=== PATIENT | female | born 1965 | race African-American/Black ===

== ENCOUNTER 2016-06-30 18:39 | Emergency (ER) | payer OTHER ==
[~2016-06-30] VITALS: Ht 170.2 cm; Wt 75.0 kg
[~2016-06-30 18:39] MED LIST: ALBU1AER INH; ATOR40TA PO; GLUCLIQ PO; LEVA750T PO; METF500 PO; MOME17I; NICO21DI24 TD; OMEP20TA PO; TIOT1AER2 INH
[2016-06-30 18:42] VITALS: BP 116/69; PULSE 110; RESP 20; TEMP 101.8; O2SAT 91
--- NOTE | 2016-06-30 18:56 | PD ---
HPI Chief Complaint: Cold / Flu Symptoms Time Seen by Provider: 18:56 Travel History International Travel<30 days: No Contact w/Intl Traveler<30days: No Traveled to known affect area: No History of Present Illness HPI 51-year-old female patient of diabetes, COPD, hypercholesterol, anxiety, presents to emergency department for evaluation. Patient states that she has been having some urinary trouble and went to her physician Tuesday. She was started on Bactrim. She felt it yesterday and started taking it. She states she developed fever yesterday but has also had cough and chest congestion. She has been nauseous without vomiting. She states last year around this time she had pneumonia. She had stopped tobacco cigarette smoking but began doing it again and believes this may be worsening her symptoms. There is a chest pain but states it feels tight. Has a sore throat associated with cough. Cough is productive of a thick sputum. No other symptoms to report. PFSH Past Medical History Arthritis: Yes Asthma: Yes Heart Rhythm Problems: No Cancer: No Cardiac Catheterization: No Cardiovascular Problems: Yes High Cholesterol: No COPD: Yes Diabetes: Yes Diminished Hearing: No Endocrine: Yes Genitourinary: No Hypertension: Yes Immune Disorder: No Musculoskeletal: Yes Neurologic: No Psychiatric: No Reproductive: No Respiratory: Yes (chronic lung disease) Immunizations Current: Yes Menopausal: Yes Past Surgical History Section: Yes (1978) Coronary Artery Bypass Graft: No Gynecologic Surgery: Yes (c section 1978) Pacemaker: No Social History Alcohol Use: No Tobacco Use: Yes (06/09 PPD) Substance Use: No Allergies-Medications (Allergen,Severity, Reaction): Coded Allergies: No Known Allergies (Verified , 06/30/16) Reported Meds & Prescriptions Reported Meds & Active Scripts Active Nicotine Transdermal Syst (Nicotine) 21 Mg/24 H Dis 21 Mg TD DAILY 42 Days Glucerna Shake (Nutritional Supplements) Vanilla Liq 1 Can PO BID 30 Days Levaquin 750 Mg Tab (Levofloxacin) 750 Mg Tab 750 Mg PO DAILY 10 Days Reported Atorvastatin 40 mg (Atorvastatin Calcium) 40 Mg Tab 40 Mg PO HS Spiriva Respimat (Tiotropium [place] Monohydrate) 1.25 Mcg/Act Aer 1 Puff INH DAILY Glucophage 500 mg (Metformin HCl) 500 Mg Tab 500 Mg PO BIDPC Nasonex (Mometasone Furoate) 50 Mcg/Ac Spr 2 [place] NA DAILY SPRAY IN EACH NOSTRIL Omeprazole 20 mg (Omeprazole) 20 Mg Tab 20 Mg PO BID Proair Hfa (Albuterol Sulfate) 8.5 Gm Aero 2 Puff INH Q6HPRN * SHAKE WELL BEFORE USE * Review of Systems Except as stated in HPI: all other systems reviewed are Neg Physical Exam Narrative GENERAL: Well-nourished female patient, sitting in the bed, in no acute distress SKIN. Warm, diaphoretic HEAD: Atraumatic. Normocephalic. EYES: Pupils equal and round. No scleral icterus. No injection or drainage. ENT: No nasal bleeding or discharge. Mucous membranes pink and moist. NECK: Trachea midline. No JVD. CARDIOVASCULAR: Tachycardic rate and rhythm. No murmur appreciated. RESPIRATORY: No accessory muscle use. Coarse throughout, scattered rhonchi. Diminished bases. Breath sounds equal bilaterally. GASTROINTESTINAL: Abdomen soft, non-tender, nondistended. Hepatic and splenic margins not palpable. MUSCULOSKELETAL: No obvious deformities. No clubbing. No cyanosis. No edema. NEUROLOGICAL: Awake and alert. No obvious cranial nerve deficits. Motor grossly within normal limits. Normal speech. PSYCHIATRIC: Appropriate mood and affect; insight and judgment normal. Data Data Last Documented VS Vital Signs Date Time Temp Pulse Resp B/P Pulse Ox O2 Delivery O2 Flow Rate FiO2 06/30/16 19:21 99 18 99 Room Air 06/30/16 18:42 101.8 116/69 Orders Acetaminophen (Tylenol) (06/30/16 19:00) Electrocardiogram (06/30/16 18:50) Complete Blood Count With Diff (06/30/16 18:50) Comprehensive Metabolic Panel (06/30/16 18:50) Prothrombin Time / Inr (Pt) (06/30/16 18:50) Act Partial Throm Time (Ptt) (06/30/16 18:50) Lactic Acid Sepsis Protocol (06/30/16 18:50) Ckmb (Isoenzyme) Profile (06/30/16 18:50) Troponin I (06/30/16 18:50) Urinalysis - C+S If Indicated (06/30/16 18:50) Blood Culture (06/30/16 18:50) Chest, Single Ap (06/30/16 18:50) Influenzae A/B Antigen (06/30/16 18:50) Group A Rapid Strep Screen (06/30/16 18:55) MDM Medical Decision Making Medical Screen Exam Complete: Yes Emergency Medical Condition: Yes Medical Record Reviewed: Yes Differential Diagnosis Influenza versus pneumonia versus COPD exacerbation versus UTI versus sepsis Narrative Course 51-year-old female presents to emergency department for evaluation. Patient is febrile and tachycardic here in the triage area. She is given Tylenol for her fever. Workup is initiated. Once a medical bed becomes available, patient will be transferred and care assumed by that provider. Condition: Stable Elisa Hernandez Jun 30, 2016 18:56
[2016-06-30] MEDS ORDERED: ACETAMINOPHEN 325 MG TAB PO ONE (19:00)
--- NOTE | 2016-06-30 19:32 | RADRPT ---
EXAM DATE/TIME: 06/30/2016 19:16 [facility] COMPARISON: CHEST SINGLE AP, November 22, 2014, 19:55. CT THORAX W CONTRAST, February 29, 2016, 10:18. CHEST SINGL E AP, February 26, 2016, 23:10. INDICATIONS : Fever, cough, flu-like symptoms. MEDICAL HISTORY : Cardiovascular disease. Hypertension. Chronic obstructive pulmonary disease. Known scarring and calci fication. Diabetes. SURGICAL HISTORY : None. ENCOUNTER: Initial ACUITY: 1 week PAIN SCORE: 4/10 LOCATION: chest FINDINGS: A single view of the chest demonstrates the lungs to be symmetrically aerated without evidence of mas s, infiltrate or effusion. Chronic scarring and calcification are again noted in the right lung. The re is underlying bullous change greatest in the left lung. There is no definite new focal consolidati on. The cardiomediastinal contours are unremarkable. Osseous structures are intact. CONCLUSION: 1. Underlying emphysema, chronic scarring and bullous change. 2. No definite evidence of pneumonia. Mike Lara MD on June 30, 2016 at 19:29 Board Certified Radiologist. This report was verified electronically.
[2016-06-30 19:52] LABS: APTT (PATIENT) 31.5 SEC (24.3-30.1); INTERNATIONAL NORMALIZED RATIO 0.9 RATIO; PROTHROMBIN TIME - PATIENT 10.2 SEC (9.8-11.6)
[2016-06-30] MEDS ORDERED: ALBUAER3 INH (19:58)
[2016-06-30] MEDS ORDERED: METF500T PO (19:59)
[2016-06-30] MEDS ORDERED: ATOR40TA16 PO (19:59)
[2016-06-30] MEDS ORDERED: MOME17I EACH NARE (20:00)
[2016-06-30] MEDS ORDERED: GLUCLIQ (20:01)
[2016-06-30] MEDS ORDERED: OMEP20TA PO (20:01)
[2016-06-30 20:07] LABS: ANION GAP 5 MEQ/L (5-15); AST (GOT) 11 U/L (15-37); BICARBONATE 29.1 MEQ/L (21.0-32.0); BLOOD UREA NITROGEN 14 MG/DL (7-18); CHLORIDE 102 MEQ/L (98-107); GLOMERULAR FILTRATION RATE 54 ML/MIN (>89); POTASSIUM 3.8 MEQ/L (3.5-5.1); SODIUM (NA) 136 MEQ/L (136-145)
--- NOTE | 2016-06-30 20:09 | PD ---
Data Data Last Documented VS Vital Signs Date Time Temp Pulse Resp B/P Pulse Ox O2 Delivery O2 Flow Rate FiO2 06/30/16 20:30 99.6 92 18 117/78 97 Room Air Orders Acetaminophen (Tylenol) (06/30/16 19:00) Electrocardiogram (06/30/16 18:50) Complete Blood Count With Diff (06/30/16 18:50) Comprehensive Metabolic Panel (06/30/16 18:50) Prothrombin Time / Inr (Pt) (06/30/16 18:50) Act Partial Throm Time (Ptt) (06/30/16 18:50) Lactic Acid Sepsis Protocol (06/30/16 18:50) Ckmb (Isoenzyme) Profile (06/30/16 18:50) Troponin I (06/30/16 18:50) Urinalysis - C+S If Indicated (06/30/16 18:50) Blood Culture (06/30/16 18:50) Chest, Single Ap (06/30/16 18:50) Influenzae A/B Antigen (06/30/16 18:50) Group A Rapid Strep Screen (06/30/16 18:55) Strep Culture (Group A) (06/30/16 19:08) Labs Laboratory Tests Test 06/30/16 06/30/16 06/30/16 19:05 20:00 20:10 Prothrombin Time 10.2 SEC Prothromb Time International 0.9 RATIO Ratio Activated Partial 31.5 SEC Thromboplast Time Sodium Level 136 MEQ/L Potassium Level 3.8 MEQ/L Chloride Level 102 MEQ/L Carbon Dioxide Level 29.1 MEQ/L Anion Gap 5 MEQ/L Blood Urea Nitrogen 14 MG/DL Creatinine 1.26 MG/DL Estimat Glomerular Filtration 54 ML/MIN Rate Random Glucose 111 MG/DL Lactic Acid Level 1.7 mmol/L Calcium Level 8.1 MG/DL Total Bilirubin 0.4 MG/DL Aspartate Amino Transf 11 U/L (AST/SGOT) Alanine Aminotransferase 19 U/L (ALT/SGPT) Alkaline Phosphatase 77 U/L Total Creatine Kinase 69 U/L Troponin I LESS THAN 0.02 NG/ML Total Protein 8.1 GM/DL Albumin 3.4 GM/DL Urine Color YELLOW Urine Turbidity HAZY Urine pH 6.0 Urine Specific [place] 1.032 Urine Protein 30 mg/dL Urine Glucose (UA) NEG mg/dL Urine Ketones NEG mg/dL Urine Occult Blood NEG Urine Nitrite NEG Urine Bilirubin NEG Urine Urobilinogen 2.0 MG/DL Urine Leukocyte Esterase LARGE Urine RBC 4 /hpf Urine WBC 154 /hpf Urine Squamous Epithelial 4 /hpf Cells Urine Mucus FEW /lpf Microscopic Urinalysis Comment CATH-CULT NOT IND White Blood Count 9.4 TH/MM3 Red Blood Count 4.39 MIL/MM3 Hemoglobin 13.4 GM/DL Hematocrit 37.4 % Mean Corpuscular Volume 85.2 FL Mean Corpuscular Hemoglobin 30.5 PG Mean Corpuscular Hemoglobin 35.8 % Concent Red Cell Distribution Width 13.1 % Platelet Count 233 TH/MM3 Mean Platelet Volume 9.5 FL Neutrophils (%) (Auto) 79.4 % Lymphocytes (%) (Auto) 11.3 % Monocytes (%) (Auto) 7.7 % Eosinophils (%) (Auto) 1.0 % Basophils (%) (Auto) 0.6 % Neutrophils # (Auto) 7.5 TH/MM3 Lymphocytes # (Auto) 1.1 TH/MM3 Monocytes # (Auto) 0.7 TH/MM3 Eosinophils # (Auto) 0.1 TH/MM3 Basophils # (Auto) 0.1 TH/MM3 CBC Comment DIFF FINAL Differential Comment MDM Supervised Visit with SELIN: Yes Narrative Course Assumed care of patient from nurse practitioner. 51-year-old woman, diabetes, COPD, hyperlipidemia, anxiety who presents with urinary trouble for 3 days, with cough congestion and fever starting yesterday. Looks well. Vital signs show fever, mild tachycardia. Studies show: My review of EKG shows normal sinus rhythm at a rate of 83, some leftward axis, normal intervals, no acute ischemia. LABS: CBC is unremarkable CMP with mildly elevated creatinine Troponin negative Lactate 1.7 Coags unremarkable Strep negative Flu negative FINAL: 50 year-old woman with likely rectal and IV antibiotics, changed to Keflex. Outpatient follow-up. Diagnosis Primary Impression: Acute pyelonephritis Additional Instruction: Take Keflex as prescribed. Follow-up with your primary doctor tomorrow. Return to the emergency department for any worsening pain, vomiting, fevers, or any other new or worsening symptoms. Med/Other Pt SpecificInfo: Prescription(s) given Scripts Cephalexin (Keflex)500 Mg Mgx343 Mg PO Q8H 10 Days Ref 0 Prov:Brandon Forde MD 06/30/16 Disposition: 01 DISCHARGE HOME Condition: Stable Brandon Forde MD Jun 30, 2016 20:09
[2016-06-30 20:12] LABS: ALKALINE PHOSPHATASE 77 U/L (45-117); ALT (GPT) 19 U/L (10-53); TOTAL BILIRUBIN ADULT 0.4 MG/DL (0.2-1.0)
[2016-06-30 20:14] LABS: CREATINE KINASE 69 U/L (26-192)
[2016-06-30 20:29] LABS: BLOOD, URINE NEG (NEG); GLUCOSE,URINE NEG (NEG); KETONE, URINE NEG (NEG); MUCUS URINE FEW /lpf (OCC); NITRITE,URINE NEG (NEG); SQUAMOUS EPITHELIAL CELL URINE 4 /hpf (0-5); URINE COLOR YELLOW (YELLW/STRAW)
[2016-06-30 20:30] VITALS: BP 117/78; PULSE 92; RESP 18; TEMP 99.6; O2SAT 97
[2016-06-30 20:30] LABS: COMMENT (UR) CATH-CULT NOT IND; CULTURE IF INDICATED CATH CULTURE NOT IND
[2016-06-30 20:35] LABS: AUTOMATED NEUTROPHIL # 7.5 TH/MM3 (1.8-7.7); BASOPHIL # 0.1 TH/MM3 (0-0.2); BASOPHIL % 0.6 % (0.0-2.0); EOSINOPHIL # 0.1 TH/MM3 (0-0.4); HEMATOCRIT 37.4 % (35.0-46.0); HEMO FLAGS DIFF FINAL; LYMPH % 11.3 % (9.0-44.0); LYMPHOCYTE # 1.1 TH/MM3 (1.0-4.8); MEAN CELL VOLUME 85.2 FL (80.0-100.0); MEAN CORPUSCULAR HEMOGLOBIN 30.5 PG (27.0-34.0); MEAN CORPUSCULAR HGB CONC 35.8 % (32.0-36.0); MONO % 7.7 % (0.0-8.0); NEUT % 79.4 % (16.0-70.0); PLATELET COUNT 233 TH/MM3 (150-450); RED BLOOD COUNT 4.39 MIL/MM3 (4.00-5.30); RED CELL DISTRIBUTION WIDTH 13.1 % (11.6-17.2); WHITE BLOOD COUNT 9.4 TH/MM3 (4.0-11.0)
[2016-06-30] MEDS ORDERED: CEPH-460 PO (20:44)
[2016-06-30] MEDS ORDERED: cefTRIAXone INJ 1,000 MG in SODIUM CHLORIDE 0.9% INJ 100 ML IV ONE (20:45)
--- NOTE | 2016-07-01 20:09 | EKG ---
Date Performed: 06/30/2016 Time Performed: 19:58:47 PTAGE: 51 years EKG: Sinus rhythm MARKED LEFT AXIS DEVIATION When compared to previous tracing, sinus rate has decreased. ABNORMAL ECG PREVIOUS TRACING : 02/26/2016 22.30 DOCTOR: Ashish Jenkins Interpretating Date/Time 07/01/2016 20:08:12
== END 2016-06-30 22:06 | disposition home or self-care (01) ==
LOC: NEPE 18:39
DX: N10 Acute pyelonephritis (principal); R50.9 Fever, unspecified; R94.31 Abnormal electrocardiogram [ECG] [EKG]; E11.9 Type 2 diabetes mellitus without complications; J44.9 Chronic obstructive pulmonary disease, unspecified; R11.0 Nausea; I10 Essential (primary) hypertension; F17.210 Nicotine dependence, cigarettes, uncomplicated
CPT/HCPCS: 71010; 80053; 81001; 82550; 83605; 84484; 85025; 85610; 85730; 87040; 87081; 87804; 87880; 93005; 96365; 99284; J0696

== ENCOUNTER 2017-07-07 18:18 | Emergency (ER) | payer OTHER, MEDICAID ==
[~2017-07-07] VITALS: Ht 170.2 cm; Wt 69.5 kg
[~2017-07-07 18:18] MED LIST changes: -ALBU1AER INH; +ALBUAER3 INH; -ATOR40TA PO; +ATOR40TA16 PO; +CEPH-460 PO; +GLUCLIQ; -GLUCLIQ PO; -LEVA750T PO; -METF500 PO; +METF500T PO; -MOME17I; +MOME17I EACH NARE; -NICO21DI24 TD; -OMEP20TA PO; +OMEP20TA93 PO; -TIOT1AER2 INH
[2017-07-07 18:21] VITALS: BP 133/95; PULSE 91; RESP 18; TEMP 98.8; O2SAT 97
[2017-07-07] MEDS ORDERED: SODIUM CHLOR 0.9% 1000 ML INJ 1,000 ML IV ONE (19:15)
[2017-07-07] MEDS ORDERED: SODIUM CHLORIDE 0.9% FLUSH 10 ML FLUSH IVF PRN (19:15)
--- NOTE | 2017-07-07 19:22 | PD ---
HPI Chief Complaint: Respiratory Symptoms Time Seen by Provider: 19:04 Travel History International Travel<30 days: No Contact w/Intl Traveler<30days: No Traveled to known affect area: No History of Present Illness HPI 52-year-old female with a history of diabetes, COPD, anxiety presents to the emergency department complaining of cough, congestion, epistaxis, occasional dizziness for about 1 month. States that she is here today because she feels more sick than usual. She is also concerned because of the large clots that she has coming from her nose. In addition, she states that she has been "coughing blood" for approximately 1 month since the bloody nose started. Patient has not discussed the symptoms with her primary care physician whom she saw 1 month ago. She describes her occasional dizziness that lasts briefly and goes away. Says that she has been using her inhalers at home but does not have nebulizers. PFSH Past Medical History Arthritis: Yes Asthma: Yes Heart Rhythm Problems: No Cancer: No Cardiac Catheterization: No Cardiovascular Problems: Yes High Cholesterol: No COPD: Yes Diabetes: Yes Patient Takes Glucophage: Yes Diminished Hearing: No Endocrine: Yes Genitourinary: No Hypertension: Yes Immune Disorder: No Musculoskeletal: Yes Neurologic: No Psychiatric: No Reproductive: No Respiratory: Yes Immunizations Current: Yes Pneumonia: Yes ?: Not Menopausal: Yes Past Surgical History Section: Yes (1978) Coronary Artery Bypass Graft: No Gynecologic Surgery: Yes (c section 1978) Pacemaker: No Social History Alcohol Use: Yes (2 beers/day) Tobacco Use: Yes (06/09 PPD) Substance Use: No Allergies-Medications (Allergen,Severity, Reaction): Coded Allergies: No Known Allergies (Verified Adverse Reaction, Unknown, 07/07/17) Reported Meds & Prescriptions Reported Meds & Active Scripts Active Azithromycin 250 Mg Tab 250 Mg PO DIRECTED Take 2 tabs (500 mg) on day 1 then 1 tab daily x 4 days. Reported Claritin (Loratadine) 10 Mg Cap 10 Mg PO DAILY Citalopram (Citalopram Hydrobromide) 20 Mg Tab 20 Mg PO DAILY Omeprazole 20 Mg Tab 20 Mg PO DAILY Metformin (Metformin HCl) 500 Mg Tab 500 Mg PO BIDPC With meals Atorvastatin (Atorvastatin Calcium) 40 Mg Tab 40 Mg PO HS Proair Hfa 8.5 GM Inh (Albuterol Sulfate) 90 Mcg/Act Aer 2 Puff INH Q4-6H PRN 108 mcg/actuation Review of Systems Except as stated in HPI: all other systems reviewed are Neg Physical Exam Narrative GENERAL: Well-developed well-nourished anxious SKIN: Focused skin assessment warm/dry. HEAD: Atraumatic. Normocephalic. EYES: Pupils equal and round. No scleral icterus. No injection or drainage. ENT: No nasal bleeding or discharge. Mucous membranes pink and moist. Nose clear and bloody rhinorrhea. NECK: Trachea midline. No JVD. CARDIOVASCULAR: Regular rate and rhythm. No murmur appreciated. RESPIRATORY: No accessory muscle use. Clear to auscultation. Breath sounds equal bilaterally. GASTROINTESTINAL: Abdomen soft, non-tender, nondistended. Hepatic and splenic margins not palpable. MUSCULOSKELETAL: No obvious deformities. No clubbing. No cyanosis. No edema. NEUROLOGICAL: Awake and alert. No obvious cranial nerve deficits. Motor grossly within normal limits. Normal speech. PSYCHIATRIC: Appropriate mood and affect; insight and judgment normal. Data Data Last Documented VS Vital Signs Date Time Temp Pulse Resp B/P (MAP) Pulse Ox O2 Delivery O2 Flow Rate FiO2 07/07/17 22:25 07/07/17 19:36 20 97 Room Air 07/07/17 19:33 21 07/07/17 18:21 98.8 91 Orders Orders Complete Blood Count With Diff (07/07/17 19:14) Comprehensive Metabolic Panel (07/07/17 19:14) Act Partial Throm Time (Ptt) (07/07/17 19:14) Prothrombin Time / Inr (Pt) (07/07/17 19:14) Magnesium (Mg) (07/07/17 19:14) Troponin I (07/07/17 19:14) Urinalysis - C+S If Indicated (07/07/17 19:14) Influenzae A/B Antigen (07/07/17 19:14) Electrocardiogram (07/07/17 19:14) Ecg Monitoring (07/07/17 19:14) Oximetry (07/07/17 19:14) Chest, Single Ap (07/07/17 19:14) Sodium Chloride 0.9% Flush (Ns Flush) (07/07/17 19:15) Albuterol-Ipratropium Neb (Duoneb Neb) (07/07/17 19:15) Sodium Chlor 0.9% 1000 Ml Inj (Ns 1000 M (07/07/17 19:15) D-Dimer (07/07/17 19:19) Phenylephrine 0.5% Nciko Spr (Neosynephrin (07/07/17 19:30) Levofloxacin 750 Mg Premix Inj (Levaquin (07/07/17 21:00) Ed Discharge Order (07/07/17 21:35) Labs Laboratory Tests Test 07/07/17 19:20 07/07/17 20:20 White Blood Count 6.0 TH/MM3 Red Blood Count 5.06 MIL/MM3 Hemoglobin 15.6 GM/DL Hematocrit 44.0 % Mean Corpuscular Volume 87.0 FL Mean Corpuscular Hemoglobin 30.8 PG Mean Corpuscular Hemoglobin Concent 35.4 % Red Cell Distribution Width 14.2 % Platelet Count 292 TH/MM3 Mean Platelet Volume 9.2 FL Neutrophils (%) (Auto) 44.1 % Lymphocytes (%) (Auto) 42.9 % Monocytes (%) (Auto) 10.2 % Eosinophils (%) (Auto) 1.6 % Basophils (%) (Auto) 1.2 % Neutrophils # (Auto) 2.6 TH/MM3 Lymphocytes # (Auto) 2.6 TH/MM3 Monocytes # (Auto) 0.6 TH/MM3 Eosinophils # (Auto) 0.1 TH/MM3 Basophils # (Auto) 0.1 TH/MM3 CBC Comment DIFF FINAL Differential Comment Prothrombin Time 10.6 SEC Prothromb Time International Ratio 1.0 RATIO Activated Partial Thromboplast Time 31.8 SEC D-Dimer Quantitative (PE/DVT) 0.30 MG/L FEU Blood Urea Nitrogen 15 MG/DL Creatinine 0.79 MG/DL Random Glucose 80 MG/DL Total Protein 9.3 GM/DL Albumin 3.8 GM/DL Calcium Level 9.0 MG/DL Magnesium Level 2.0 MG/DL Alkaline Phosphatase 85 U/L Aspartate Amino Transf (AST/SGOT) 23 U/L Alanine Aminotransferase (ALT/SGPT) 24 U/L Total Bilirubin 0.5 MG/DL Sodium Level 133 MEQ/L Potassium Level 4.3 MEQ/L Chloride Level 98 MEQ/L Carbon Dioxide Level 29.2 MEQ/L Anion Gap 6 MEQ/L Estimat Glomerular Filtration Rate 92 ML/MIN Troponin I LESS THAN 0.02 NG/ML Urine Color LIGHT-YELLOW Urine Turbidity CLEAR Urine pH 5.0 Urine Specific [place] 1.006 Urine Protein NEG mg/dL Urine Glucose (UA) NEG mg/dL Urine Ketones NEG mg/dL Urine Occult Blood NEG Urine Nitrite NEG Urine Bilirubin NEG Urine Urobilinogen LESS THAN 2.0 MG/DL Urine Leukocyte Esterase SMALL Urine RBC 2 /hpf Urine WBC 2 /hpf Urine Squamous Epithelial Cells 3 /hpf Urine Amorphous Sediment RARE Microscopic Urinalysis Comment CULT NOT INDICATED MDM Medical Decision Making Medical Screen Exam Complete: Yes Emergency Medical Condition: Yes Differential Diagnosis COPD exacerbation, pneumonia, asthma, medication noncompliance Narrative Course 52-year-old female with a history of diabetes, COPD, anxiety presents to the emergency department complaining of cough, congestion, epistaxis, occasional dizziness for about 1 month. States that she is here today because she feels more sick than usual. She is also concerned because of the large clots that she has coming from her nose. In addition, she states that she has been "coughing blood" for approximately 1 month since the bloody nose started. Patient has not discussed the symptoms with her primary care physician whom she saw 1 month ago. She describes her occasional dizziness that lasts briefly and goes away. Says that she has been using her inhalers at home but does not have nebulizers. Vital signs stable. DuoNeb 3 administered with improvement in patient's symptoms. Patient states she does feel much better. Neosynephrine nasal administered to nasal cavity for epistaxis, bleeding controlled. 1 L normal saline IV fluid administered. Chest x-ray demonstrates a right lower lobe pneumonia. Because of the hour of night, patient administered Levaquin 750 mg IV. Advised to start azithromycin tomorrow morning. States that she is due to receive her nebulizers with medication from her primary care physician so will defer nebulized medications to her primary care physician. CBC & BMP Diagram 07/07/17 19:20 Total Protein 9.3 H, Albumin 3.8, Calcium Level 9.0, Magnesium Level 2.0, Alkaline Phosphatase 85, Aspartate Amino Transf (AST/SGOT) 23, Alanine Aminotransferase (ALT/SGPT) 24, Total Bilirubin 0.5 Influenza negative. D-dimer 0.3. Patient appreciates the care she has received today and is ready to go home. She should follow-up with the primary care physician within 2-3 days. Patient advised to return to the emergency department for worsening or persistent symptoms. Diagnosis Primary Impression: PNA (pneumonia) Qualified Codes: J18.1 - Lobar pneumonia, unspecified organism Additional Impression: Epistaxis Referrals: Primary Care Physician Additional Instructions: Take all medications as prescribed. Follow-up with primary care physician within 2-3 days. If your nose begins bleeding again, hold your nares for 5 minutes to control the bleeding. Avoid putting any objects in your nose. Scripts Azithromycin (Azithromycin) 250 Mg Tab 250 MG PO DIRECTED for Infection, #6 TAB 0 Refills Take 2 tabs (500 mg) on day 1 then 1 tab daily x 4 days. Prov: Amie Wu 07/07/17 Disposition: 01 DISCHARGE HOME Condition: Stable Amie Wu Jul 07, 2017 19:22
[2017-07-07] MEDS ORDERED: PHENYLEPHRINE HCL 0.5% NASAL SPRAY 15 ML BTL NASAL ONE (19:30)
[2017-07-07] MEDS: RESP: ALBUTEROL 2.5 MG/IPRATROPIUM 0.5 MG NEB (SCH) INH ×2 (19:32→19:33)
[2017-07-07 19:33] VITALS: O2SAT 100
[2017-07-07 19:36] VITALS: RESP 20; O2SAT 97
[2017-07-07] MEDS ORDERED: CLAR10CA3 PO (19:53)
[2017-07-07] MEDS ORDERED: CITA20TA4 PO (19:53)
[2017-07-07 19:56] LABS: AUTOMATED NEUTROPHIL # 2.6 TH/MM3 (1.8-7.7); BASOPHIL # 0.1 TH/MM3 (0-0.2); BASOPHIL % 1.2 % (0.0-2.0); EOSINOPHIL # 0.1 TH/MM3 (0-0.4); EOSINOPHIL % 1.6 % (0.0-4.0); HEMOGLOBIN 15.6 GM/DL (11.6-15.3); LYMPH % 42.9 % (9.0-44.0); LYMPHOCYTE # 2.6 TH/MM3 (1.0-4.8); MEAN CORPUSCULAR HEMOGLOBIN 30.8 PG (27.0-34.0); MEAN CORPUSCULAR HGB CONC 35.4 % (32.0-36.0); MEAN PLATELET VOLUME 9.2 FL (7.0-11.0); MONO % 10.2 % (0.0-8.0); MONOCYTE # 0.6 TH/MM3 (0-0.9); NEUT % 44.1 % (16.0-70.0); PLATELET COUNT 292 TH/MM3 (150-450); RED BLOOD COUNT 5.06 MIL/MM3 (4.00-5.30); RED CELL DISTRIBUTION WIDTH 14.2 % (11.6-17.2)
[2017-07-07 20:01] LABS: PROTHROMBIN TIME - PATIENT 10.6 SEC (9.8-11.6)
[2017-07-07 20:05] LABS: ALBUMIN 3.8 GM/DL (3.4-5.0); AST (GOT) 23 U/L (15-37); BICARBONATE 29.2 MEQ/L (21.0-32.0); BLOOD UREA NITROGEN 15 MG/DL (7-18); CHLORIDE 98 MEQ/L (98-107); CREATININE 0.79 MG/DL (0.50-1.00); GLOMERULAR FILTRATION RATE 92 ML/MIN (>89); GLUCOSE,RANDOM 80 MG/DL (74-106); SODIUM (NA) 133 MEQ/L (136-145)
--- NOTE | 2017-07-07 20:05 | RADRPT ---
EXAM DATE/TIME: 07/07/2017 19:35 [facility] COMPARISON: CHEST SINGLE AP, June 30, 2016, 19:16. INDICATIONS : Shortness of breath. MEDICAL HISTORY : Cardiovascular disease. Hypertension. Chronic obstructive pulmonary disease. Known scarring and calci fication. Diabetes SURGICAL HISTORY : None. ENCOUNTER: Initial ACUITY: 1 day PAIN SCORE: 0/10 LOCATION: Bilateral chest FINDINGS: Minimal patchiness is noted within the right lung base consistent with possible pneumonia. Clinical c orrelation is recommended. Scattered calcifications and scarring are again noted bilaterally. Emphyse matous changes are also again noted bilaterally. The heart is stable. CONCLUSION: 1. Minimal patchiness within the right lung base possible pneumonia. Clinical correlation is recommen ded. 2. Stable emphysematous changes, calcifications and scattered scarring. Lacho Christina MD on July 07, 2017 at 20:01 Board Certified Radiologist. This report was verified electronically.
[2017-07-07 20:06] LABS: ALT (GPT) 24 U/L (10-53)
[2017-07-07 20:10] LABS: ALKALINE PHOSPHATASE 85 U/L (45-117); TOTAL BILIRUBIN ADULT 0.5 MG/DL (0.2-1.0); TOTAL PROTEIN 9.3 GM/DL (6.4-8.2); TROPONIN I LESS THAN 0.02 NG/ML (0.02-0.05)
[2017-07-07 20:36] LABS: AMORPHOUS SEDIMENT, URINE RARE; BILIRUBIN, URINE NEG (NEG); BLOOD, URINE NEG (NEG); GLUCOSE,URINE NEG (NEG); KETONE, URINE NEG (NEG); NITRITE,URINE NEG (NEG); SQUAMOUS EPITHELIAL CELL URINE 3 /hpf (0-5); URINE COLOR LIGHT-YELLOW (YELLW/STRAW); URINE LEUKOCYTE ESTERASE SMALL (NEG)
[2017-07-07] MEDS ORDERED: AZIT250T3 PO (20:47)
[2017-07-07] MEDS ORDERED: LEVOFLOXACIN 750 MG PREMIX INJ 150 ML IV ONE (21:00)
--- NOTE | 2017-07-08 03:53 | PD ---
Physical Exam Narrative I, Dr. Martínez, have reviewed the advance practice practitioner's documentation and am in agreement, met with the patient face to face, made the diagnosis, and the medical decision making was done by me. *My assessment and Findings: Patient is a 52 year old female with multiple complaints. She says she has been sick for a month. She says she has been coughing and she has nosebleeds on and off. She says she came in because a blood clot came out of her nose. Exam shows coarse breath sounds. Heart is RRR. No septal hematoma or active bleeding from the nose. Data Data Last Documented VS Vital Signs Date Time Temp Pulse Resp B/P (MAP) Pulse Ox O2 Delivery O2 Flow Rate FiO2 07/07/17 22:25 07/07/17 19:36 20 97 Room Air 07/07/17 19:33 21 07/07/17 18:21 98.8 91 Orders Orders Complete Blood Count With Diff (07/07/17 19:14) Comprehensive Metabolic Panel (07/07/17 19:14) Act Partial Throm Time (Ptt) (07/07/17 19:14) Prothrombin Time / Inr (Pt) (07/07/17 19:14) Magnesium (Mg) (07/07/17 19:14) Troponin I (07/07/17 19:14) Urinalysis - C+S If Indicated (07/07/17 19:14) Influenzae A/B Antigen (07/07/17 19:14) Electrocardiogram (07/07/17 19:14) Ecg Monitoring (07/07/17 19:14) Oximetry (07/07/17 19:14) Chest, Single Ap (07/07/17 19:14) Sodium Chloride 0.9% Flush (Ns Flush) (07/07/17 19:15) Albuterol-Ipratropium Neb (Duoneb Neb) (07/07/17 19:15) Sodium Chlor 0.9% 1000 Ml Inj (Ns 1000 M (07/07/17 19:15) D-Dimer (07/07/17 19:19) Phenylephrine 0.5% Nicko Spr (Neosynephrin (07/07/17 19:30) Levofloxacin 750 Mg Premix Inj (Levaquin (07/07/17 21:00) Ed Discharge Order (07/07/17 21:35) Labs Laboratory Tests Test 07/07/17 19:20 07/07/17 20:20 White Blood Count 6.0 TH/MM3 Red Blood Count 5.06 MIL/MM3 Hemoglobin 15.6 GM/DL Hematocrit 44.0 % Mean Corpuscular Volume 87.0 FL Mean Corpuscular Hemoglobin 30.8 PG Mean Corpuscular Hemoglobin Concent 35.4 % Red Cell Distribution Width 14.2 % Platelet Count 292 TH/MM3 Mean Platelet Volume 9.2 FL Neutrophils (%) (Auto) 44.1 % Lymphocytes (%) (Auto) 42.9 % Monocytes (%) (Auto) 10.2 % Eosinophils (%) (Auto) 1.6 % Basophils (%) (Auto) 1.2 % Neutrophils # (Auto) 2.6 TH/MM3 Lymphocytes # (Auto) 2.6 TH/MM3 Monocytes # (Auto) 0.6 TH/MM3 Eosinophils # (Auto) 0.1 TH/MM3 Basophils # (Auto) 0.1 TH/MM3 CBC Comment DIFF FINAL Differential Comment Prothrombin Time 10.6 SEC Prothromb Time International Ratio 1.0 RATIO Activated Partial Thromboplast Time 31.8 SEC D-Dimer Quantitative (PE/DVT) 0.30 MG/L FEU Blood Urea Nitrogen 15 MG/DL Creatinine 0.79 MG/DL Random Glucose 80 MG/DL Total Protein 9.3 GM/DL Albumin 3.8 GM/DL Calcium Level 9.0 MG/DL Magnesium Level 2.0 MG/DL Alkaline Phosphatase 85 U/L Aspartate Amino Transf (AST/SGOT) 23 U/L Alanine Aminotransferase (ALT/SGPT) 24 U/L Total Bilirubin 0.5 MG/DL Sodium Level 133 MEQ/L Potassium Level 4.3 MEQ/L Chloride Level 98 MEQ/L Carbon Dioxide Level 29.2 MEQ/L Anion Gap 6 MEQ/L Estimat Glomerular Filtration Rate 92 ML/MIN Troponin I LESS THAN 0.02 NG/ML Urine Color LIGHT-YELLOW Urine Turbidity CLEAR Urine pH 5.0 Urine Specific [place] 1.006 Urine Protein NEG mg/dL Urine Glucose (UA) NEG mg/dL Urine Ketones NEG mg/dL Urine Occult Blood NEG Urine Nitrite NEG Urine Bilirubin NEG Urine Urobilinogen LESS THAN 2.0 MG/DL Urine Leukocyte Esterase SMALL Urine RBC 2 /hpf Urine WBC 2 /hpf Urine Squamous Epithelial Cells 3 /hpf Urine Amorphous Sediment RARE Microscopic Urinalysis Comment CULT NOT INDICATED MDM Supervised Visit with SELIN: Yes Narrative Course CXR concerning for pneumonia. Given duonebs. Will be discharged with prescription for antibiotics. Advised to quit smoking. Diagnosis Primary Impression: PNA (pneumonia) Qualified Codes: J18.1 - Lobar pneumonia, unspecified organism Additional Impression: Epistaxis Referrals: Primary Care Physician Patient Instructions: General Instructions, Nosebleed (ED), Pneumonia (ED) Departure Forms: Tests/Procedures Additional Instruction: Take all medications as prescribed. Follow-up with primary care physician within 2-3 days. If your nose begins bleeding again, hold your nares for 5 minutes to control the bleeding. Avoid putting any objects in your nose. Scripts Azithromycin (Azithromycin) 250 Mg Tab 250 MG PO DIRECTED for Infection, #6 TAB 0 Refills Take 2 tabs (500 mg) on day 1 then 1 tab daily x 4 days. Prov: Amie Wu 07/07/17 Disposition: 01 DISCHARGE HOME Condition: Stable Diana Martínez MD Jul 08, 2017 03:53
--- NOTE | 2017-07-08 19:38 | EKG ---
Date Performed: 07/07/2017 Time Performed: 19:34:20 PTAGE: 52 years EKG: Sinus rhythm MARKED LEFT AXIS DEVIATION ABNORMAL ECG Since the prior tracing, there has been no significant de leon e PREVIOUS TRACING : 06/30/2016 19.58 DOCTOR: Rom Mcmahan Interpretating Date/Time 07/08/2017 19:37:10
== END 2017-07-07 22:25 | disposition home or self-care (01) ==
LOC: NEPC 18:18
DX: J18.1 Lobar pneumonia, unspecified organism (principal); J44.0 Chronic obstructive pulmonary disease with (acute) lower respiratory infection; R04.0 Epistaxis; R94.31 Abnormal electrocardiogram [ECG] [EKG]; E11.9 Type 2 diabetes mellitus without complications; F41.9 Anxiety disorder, unspecified; I10 Essential (primary) hypertension; M19.90 Unspecified osteoarthritis, unspecified site; F17.200 Nicotine dependence, unspecified, uncomplicated
CPT/HCPCS: 71045; 80053; 81001; 83735; 84484; 85025; 85379; 85610; 85730; 87804; 93005; 94640; 94664; 96361; 96365; 99285; J1956; J7030